=== PATIENT | male | born 1985 | race African-American/Black ===

== ENCOUNTER 2020-06-17 17:55 | Observation (INO) | payer BC, SELFPAY ==
[2020-06-17] VITALS (8 sets, daily range): BP systolic 100–141; BP diastolic 79–99; PULSE 88–109; RESP 14–20; TEMP 36.2–37; O2SAT 97–100; BMI 21.9
--- NOTE | ~2020-06-17 | US_ITS ---
EXAMINATION: US right upper quadrant DATE: 06/19/2020 10:16 INDICATION: Abnormal liver function tests. TECHNIQUE: Multiple grayscale and Doppler ultrasound images of the abdomen were obtained. COMPARISON: None FINDINGS: The visualized portions of the head and body of the pancreas are normal. The liver is casie l without focal lesion. No liver surface nodularity. There is normal flow in main portal vein. The ga llbladder is normal in size. No gallstones or gallbladder wall thickening. There was no sonographic M urphy sign. The common duct is normal and measures 3 mm. IMPRESSION: 1. Normal right upper quadrant ultrasound. Reviewed, dictated and finalized at location A.
--- NOTE | ~2020-06-17 | XR_ITS ---
EXAMINATION: XR chest 1V portable INDICATION: Transient alteration of awareness TECHNIQUE: Portable AP chest at 1926 hours COMPARISON: None available FINDINGS: The lungs are free of acute opacities. There is no pleural effusion or pneumothorax. The ca rdiomediastinal silhouette is normal. The visualized bones and soft tissues are unremarkable. IMPRESSION: 1. No acute cardiopulmonary abnormality. Reviewed, dictated and finalized at location A.
--- NOTE | ~2020-06-17 | CT_ITS ---
EXAMINATION: CT brain wo con INDICATION: Head injury, transient alteration of awareness COMPARISON: None TECHNIQUE: Standard unenhanced head CT. The dose-length product (DLP) was 605.33 mGy-cm. The mA was a djusted according to patient size. Iterative reconstruction technique was employed. FINDINGS: There is no intracranial hemorrhage, acute infarction, or abnormal mass lesion. The ventric les are normal. There is no abnormal mass effect or midline shift. The powell-white matter differentiat ion is normal. The basal cisterns are patent. The orbits are normal. There is left frontal scalp soft tissue swelling. The paranasal sinuses, mastoids and calvarium are normal. IMPRESSION: 1. No acute intracranial abnormality. Reviewed, dictated and finalized at location A.
--- NOTE | 2020-06-17 18:10 | ECG_ITS ---
Measurements Intervals [place] Rate: 85 P: 55 ID: [id number] QRS: 55 QRSD: 88 T: 55 QT: 328 QTc: 392 Interpretive Statements SINUS RHYTHM ST ELEVATION IN ANTERIOR LEADS, PROBABLY EARLY REPOLARIZATION BORDERLINE ECG Electronically Signed On 06-18-2020 7:43:43 CDT by Peter Posadas D.O.
[2020-06-17 18:24] LABS: Eosinophils Percent Auto 0.7 % (0-4.4); Hematocrit 26.3 % (37.0-47.0); Hemoglobin 7.9 g/dL (12.0-15.0); Immature Granulocyte Absolute 0.01 K/mm3 (0.00-0.031); Immature Granulocyte Percent A 0.3 % (0-0.5); Lymphocytes Absolute Auto 0.94 K/mm3 (0.9-3.2); Lymphocytes Percent Auto 31.9 % (18.3-44.2); Mean Corpuscular Hemoglobin 22.8 pg (26-34); Mean Platelet Volume 9.4 fl (7.4-10.4); Monocytes Absolute Auto 0.5 K/mm3 (0.1-0.6); Monocytes Percent Auto 15.6 % (2.6-8.5); Neutrophils Absolute Auto 1.5 K/mm3 (1.3-6.7); Neutrophils Percent Auto 50.5 % (45.5-73.1); Platelet Count Result 180 k/mm3 (150-375); Red Blood Count 3.46 M/mm3 (4.2-5.4); Red Cell Distribution Width 17.9 % (11.5-14.5)
--- NOTE | 2020-06-17 18:30 | PC.NURSE ---
Patient tells me he is unable to urinate and is refusing straight cath at this time.
[2020-06-17 18:39] LABS: Albumin Level 4.3 g/dL (3.5-5.1); Alkaline Phosphatase 57 U/L (38-126); Anion Gap 17 mmol/L (8-16); Aspartate Amino Transferase 115 U/L (14-36); Bilirubin,Total 0.7 mg/dL (0.2-1.3); Blood Urea Nitrogen 8 mg/dL (7-17); Calcium 9.2 mg/dL (8.4-10.2); Carbon Dioxide 21 mmol/L (22-30); Chloride 101 mmol/L (98-107); Estimated CRCL calculation 69 ml/min; Estimated Glomerular Filt Rate > 60; Glucose 132 mg/dL (65-105); Potassium 3.9 mmol/L (3.4-5.0); Sodium 139 mmol/L (137-145)
[2020-06-17 18:49] LABS: Alanine Aminotransferase 72 U/L (4-50)
--- NOTE | 2020-06-17 19:03 | PC.NURSE ---
Patient was asked if he was able to give a urine sample and denied saying he didn't feel the urge yet.
--- NOTE | 2020-06-17 19:11 | ED.SEIZURE ---
HPI - Seizure General Chief Complaint: Seizure Stated Complaint: seizure x2 mins Time Seen by Provider: 06/17/20 19:05 Source: RN notes reviewed History of Present Illness HPI Narrative: Patient presents emergency department via EMS for seizure. Patient had a witnessed tonic-clonic seizure by bystanders and had post ictal episode. Patient states he has a history of seizures and takes medication but missed his dose this morning. He is unsure of what seizure medication he takes at this time but does not get it filled at [facility]. He denies any other complaints at this time denies any recent illness he denies any fevers or chills chest pain shortness of breath abdominal pain Related Data Allergies Allergy/AdvReac Type Severity Reaction Status Date / Time No Known Allergies Allergy Verified 06/17/20 19:24 Review of Systems Review of Systems: Narrative: Gen.: Denies fevers or chills Eyes: Denies eye pain or visual change ENT: Denies congestion Respiratory: Denies shortness of breath or cough CV: Denies chest pain or palpitations GI: Denies abdominal pain nausea, emesis or diarrhea denies burning, urgency, frequency or hematuria Musculoskeletal: Denies back pain or muscle pain Neuro: See HPI Skin: Denies rash Except as documented, all other systems reviewed and negative [facility] Past Medical History Medical History (Updated 06/17/20 @ 21:57 by Bright Nye DO) Seizure disorder Social History Social History (Updated 06/17/20 @ 19:12 by Bright Nye DO) Smoking packs per day: 0.5 Smoking cigarettes per day: 10.0 Exam Narrative: Exam Narrative: APPEARANCE: No acute distress, nontoxic, resting in bed HEENT: Normocephalic, small area of swelling and abrasion over anterior forehead, OMM, EYES: PERRL, EOMI NECK: Supple, nontender, full range of motion without pain, no meningismus RESPIRATORY: No respiratory distress, clear to auscultation bilaterally with no rhonchi wheezing or rales CARDIOVASCULAR: RRR s murmur ABDOMINAL: Soft, nontender, nondistended MUSCULOSKELETAL: Moves all extremities. No clubbing, cyanosis or edema. NEURO: A and O ?3, following commands, speech normal, no facial droop,muscle strength 5 out of 5 bilateral upper and lower extremities SKIN:: Warm, dry. Normal Color PSYCHIATRIC: Normal affect/mood Course Course Emergency Course: Discussed with patient his seizure history. States he has not seen primary care physician or neurologist in numerous years he is unsure of the exact medication that he takes for his symptoms patient states he drinks several beers a day Discussed Dr. Mi presentation and work-up request patient start on Keppra 500 twice daily agrees with consult and follow as an inpatient Dr. Clark presentation work-up. Agrees with admission at this time. Discussed current UA will obtain urine culture hold on antibiotics as patient with episode of seizure no signs of infection Discussed with patient and family results of workup and diagnosis. Discussed need for admission. Patient and family understand and agree to current treatment plan Vital Signs Vital signs: Vital Signs Temperature 97.7 F 06/17/20 18:00 Pulse Rate 88 06/17/20 18:00 Respiratory Rate 16 06/17/20 18:00 Blood Pressure 120/94 H 06/17/20 18:00 Pulse Oximetry 100 06/17/20 18:00 Temperature 97.5 F L 06/17/20 20:34 Pulse Rate 100 06/17/20 20:34 Respiratory Rate 16 06/17/20 20:34 Blood Pressure 100/86 06/17/20 20:34 Pulse Oximetry 99 06/17/20 20:34 MDM - Seizure Lab Data Result diagrams: 06/17/20 18:15 06/17/20 18:15 Labs: Lab Results 06/17/20 06/17/20 06/17/20 Range/Units 18:14 18:14 18:15 WBC 3.0 L (4.5-10.0) K/mm3 RBC 3.46 L (4.2-5.4) M/mm3 Hgb 7.9 L (12.0-15.0) g/dL Hct 26.3 L (37.0-47.0) % MCV 76.0 L (80-100) fl MCH 22.8 L (26-34) pg MCHC 30.0 L (32-36) g/dl RDW 17.9 H (11.5-14.5) % Plt C
--- NOTE | 2020-06-17 19:25 | PC.NURSE ---
Patient told EDP that he uses [facility] pharmacy. Pharmacy called and reports only prescription they had for him was diazepam 5mg tablets 12/31/19 with 6 tablets dispensed.
[2020-06-17] MEDS: SODIUM CHLORIDE 0.9% IV 1,000 ML 999 ML IV CONT (19:45)
--- NOTE | 2020-06-17 19:50 | PC.NURSE ---
Called lab to add on Phenytion
[2020-06-17 19:58] LABS: Add Urine Microscopic? YES; Appearance Urine Clear (Clear); Bacteria Urine Trace /hpf; Bilirubin Urine Negative (Negative); Blood Urine Negative (Negative); Color Urine Yellow (Yellow); Glucose Urine UA Negative (Negative); Ketones Urine Trace mg/dL (Negative); Leukocyte Esterase Ur Trace LEU/UL (Negative); Mucus Urine Rare /lpf; Nitrate Urine Negative (Negative); Protein Urine 2+ mg/dL (Negative); RBC Urine 0-2 /hpf (0-2); Specific Grav Ur 1.019 (1.001-1.035); Squamous Epithelial Cell Urine Occasional /hpf (Few); WBC Urine 21-30 /hpf
[2020-06-17 20:23] LABS: Phenytoin Dilantin < 3 ug/mL (10-20)
--- NOTE | 2020-06-17 20:28 | PC.NURSE ---
Patient's mother present at this time. She is not able to provided information about patient's current medications.
--- NOTE | 2020-06-17 20:56 | PC.NURSE ---
called lab to add on Ethanol
[2020-06-17 21:01] LABS: Ethanol < 10 mg/dL (<10)
[2020-06-17] MEDS: levETIRAcetam 500MG/NACL 100ML 500 MG/100 ML BAG 400 MG IVPB (21:16)
--- NOTE | 2020-06-17 23:02 | PM.IMHP ---
H&P: HPI History of Present Illness Date/Time: 06/17/20 23:02 Chief complaint: seizure disorder,anemia Narrative: This is a 34 year old male with known Seizure disorder who presented to the hospital with a complaint of suffering a witnessed tonic-clonic seizure today. The patient remembers eating food at his families house before passing out and waking up in the hospital. He does complain of left frontal headache. He denies any focal neurological deficits tonight. He also denies losing urine or biting his tongue. The patient apparently had a postictal period after his seizure according to the witnesses. Currently the patient is back to his baseline. The patient was diagnosed with a seizure disorder this past December and has had a total of 4 seizures now. He also is known to drink alcohol daily. He describes drinking one tall boy daily. His last drink was yesterday. He describes sometimes going 3 days without a drink although he does admit that sometimes he gets shaky if he hasn't had a drink in some time. He denies ever having an alcohol withdrawal seizure. He currently does not have a Neurologist that he sees and states that he no longer has an medication for his seizures. Tonight he has no other complaints. He states that he has never been admitted to the hospital for of the other 3 seizures he had this year although he has been evaluated in the ER each time. ER provider has consulted Dr. Mi, Neurology who will see the patient tomorrow. The patient was loaded with IV keppra in the ER. Review of Systems Review of Systems: All systems reviewed & are unremarkable except as noted in HPI and below PMFSH Past Medical History Medical History (Updated 06/17/20 @ 23:10 by Kb Clark MD) Seizure disorder Social History Social History (Updated 06/17/20 @ 23:08 by Kb Clark MD) Smoking packs per day: 0.5 Smoking cigarettes per day: 10.0 Smoking status: Current every day smoker Tobacco type: cigarettes Alcohol intake: current Drinks per week: 7 Alcohol use details: daily drinker++ Comments Family medical history is reviewed and noncontributory. Past surgical hx is negative. Meds Home Medications and Allergies Home Medications Medication Instructions Recorded Confirmed Type Unable to Obtain Home Medications 06/17/20 06/17/20 History Allergies Allergy/AdvReac Type Severity Reaction Status Date / Time No Known Allergies Allergy Verified 06/17/20 23:14 Vital Signs Vital Signs - 24 hr 06/17/20 18:00 06/17/20 18:12 06/17/20 18:28 Temperature 36.5 C 36.7 C Pulse Rate 88 91 Respiratory Rate 16 14 Blood Pressure 120/94 H 122/79 Pulse Oximetry 100 100 99 06/17/20 19:51 06/17/20 20:34 06/17/20 21:45 Temperature 36.4 C L 36.7 C Pulse Rate 109 H 100 104 H Respiratory Rate 17 16 20 Blood Pressure 126/85 100/86 120/88 Pulse Oximetry 100 99 100 06/17/20 22:42 Temperature 36.2 C L Pulse Rate 96 Respiratory Rate 18 Blood Pressure 135/99 H Pulse Oximetry 97 Exam Const: General: cooperative, alert and awake Nutritional Appearance: well nourished Orientation/consciousness: patient oriented x3 HENMT: Head: contusion left frontal General nose exam: Normal external nose present Face and sinus: normal facial exam Mouth: Yes Normal oral and palatal mucosa present and Yes oropharynx normal Eyes: Pupils: Equal, round and reactive pupils present EOM: EOMs intact bilaterally Neck: Neck: supple and no JVD Thyroid: thyroid normal Lymphatic: lymphadenopathy not noted Resp: Effort & Inspection: normal respiratory effort Auscultation: clear to auscultation bilaterally Cardio: Rate: regular rate Rhythm: regular rhythm Heart sounds: no murmurs GI: Inspection: normal to inspection Auscultation: normal bowel sounds Skin: General skin exam: normal color and no rashes or lesions noted Neuro: General: patient oriented x3 Cranial nerves: Yes CN's
--- NOTE | 2020-06-17 23:21 | ADMGEN ---
This patient, Alli Melendez, was admitted to Medical Room 345-. Patient/family oriented to hospital policies and general routines including ID bracelet, bed and alarms, visiting hours, pain management, procedures, bathroom and other care routines, personal items, smoking policy, room service/diet, and visiting hours. Valuables list has been completed. Information on how to activate the Rapid Response Team has been discussed. Patient/Family are encouraged to report perceived risks to care and to ask questions if they do not understand what they are told or what they should do.
[2020-06-17] MEDS: SODIUM CHLORIDE 0.9% IV 1,000 ML 125 ML IV CONT (23:47)
[2020-06-18] VITALS (9 sets, daily range): BP systolic 116–139; BP diastolic 86–93; PULSE 62–95; RESP 16–18; TEMP 36.6–36.8; O2SAT 99–100
[2020-06-18 06:18] LABS: Glucose Point of Care 81 (65-105)
[2020-06-18 06:35] LABS: Basophils Percent Auto 0.6 % (0.2-1.2); Eosinophils Absolute Auto 0.1 K/mm3 (0-0.3); Eosinophils Percent Auto 2.4 % (0-4.4); Hematocrit 23.7 % (42.0-52.0); Hemoglobin 7.1 g/dL (14.0-18.0); Lymphocytes Absolute Auto 1.21 K/mm3 (0.9-3.2); Lymphocytes Percent Auto 35.7 % (18.3-44.2); Mean Corpuscular Hemoglobin 23.1 pg (26-34); Mean Corpuscular Volume 77.2 fl (80-100); Monocytes Absolute Auto 0.6 K/mm3 (0.1-0.6); Monocytes Percent Auto 16.8 % (2.6-8.5); Neutrophils Absolute Auto 1.5 K/mm3 (1.3-6.7); Neutrophils Percent Auto 44.5 % (45.5-73.1); Platelet Count Result 178 k/mm3 (150-375); Red Blood Count 3.07 M/mm3 (4.6-6.20); Red Cell Distribution Width 18.2 % (11.5-14.5); White Blood Count 3.4 K/mm3 (4.5-10.0)
[2020-06-18 06:48] LABS: Alanine Aminotransferase 62 U/L (4-50); Albumin Level 3.6 g/dL (3.5-5.1); Alkaline Phosphatase 48 U/L (38-126); Anion Gap 5 mmol/L (8-16); Aspartate Amino Transferase 89 U/L (17-59); Bilirubin,Total 0.5 mg/dL (0.2-1.3); Blood Urea Nitrogen 7 mg/dL (9-20); Calcium 8.4 mg/dL (8.4-10.2); Carbon Dioxide 26 mmol/L (22-30); Chloride 107 mmol/L (98-107); Estimated CRCL calculation 92 ml/min; Estimated Glomerular Filt Rate > 60; Glucose 84 mg/dL (75-110); Magnesium 1.5 mg/dL (1.6-2.3); Potassium 3.7 mmol/L (3.4-5.0); Sodium 138 mmol/L (137-145)
[2020-06-18 08:00] LABS: Iron 27 ug/dL (49-181)
[2020-06-18 08:01] LABS: Transferrin 253 mg/dL (206-381)
[2020-06-18 08:09] LABS: Percent Iron Saturation 7 % (20-50)
[2020-06-18 08:37] LABS: Ferritin 6.59 ng/mL (17.9-464)
[2020-06-18] MEDS: SODIUM CHLORIDE 0.9% IV 1,000 ML 125 ML IV CONT ×2 (08:39→18:12)
[2020-06-18] MEDS: MAGNESIUM SULF 2 GM/WATER 50ML 2 GM/50 ML BAG IVPB (08:39)
[2020-06-18] MEDS: FERROUS SULFATE 324 MG TABLET PO (08:40)
[2020-06-18] MEDS: THIAMINE HCL 200 MG/2 ML VIAL 100 MG IV PUSH (08:40)
[2020-06-18] MEDS: levETIRAcetam 500 MG TABLET PO ×2 (08:40→20:22)
[2020-06-18 09:00] LABS: Folic Acid 7.4 ng/mL (2.76->20)
[2020-06-18] MEDS: FOLIC ACID 1 MG TABLET PO (09:19)
--- NOTE | 2020-06-18 11:46 | WPDNEURCNPN ---
Assessment and Plan Assessment and plan (1) Alcohol abuse: Code(s): F10.10 - Alcohol abuse, uncomplicated Status: Chronic (2) Seizure disorder: Code(s): G40.909 - Epilepsy, unspecified, not intractable, without status epilepticus Status: Acute (3) Abnormal urinalysis: Code(s): R82.90 - Unspecified abnormal findings in urine Status: Acute (4) Anemia: Qualifiers: Anemia type: unspecified type Qualified Code(s): D64.9 - Anemia, unspecified Code(s): D64.9 - Anemia, unspecified Status: Acute Additional Plan considering the history of alcohol-related seizure even if it could be very well withdrawal seizure I will continue the anticonvulsant because of the chronic recurrent trauma from alcohol intoxication repeat EEG will be obtained and CT scan of the head has obviously revealed no evidence of epidural subdural or gross neurological injuries Consult date: 06/18/20 Time Seen: 10:30 HPI: Alli Melendez is a 34 year old male admitted to the hospital with a complaint of witnessed tonic-clonic seizure. patient reported eating food at his family house before passing out and waking up in the hospital in addition he complained of left frontal headaches, gave no history of incontinence of bowel or bladder, by the time he was seen by the hospitalist he was back to his baseline patient is known to have seizure disorder also known to have alcohol abuse drinking 1 tall boys daily though his last drink was day before admission ,he reported some time he becomes shaky if he has not had a drink for several days and has had alcohol withdrawal seizure. he is a current every day smoker, drinks 7 drinksper week Review of Systems Review of Systems: All systems reviewed & are unremarkable except as noted in HPI and below [facility] Social History Social History (Updated 06/17/20 @ 23:08 by Kb Clark MD) Smoking packs per day: 0.5 Smoking cigarettes per day: 10.0 Smoking status: Current every day smoker Tobacco type: cigarettes Second hand tobacco smoke exposure: No Alcohol intake: current Drinks per week: 7 Alcohol use details: daily drinker++ Substance use: former Other substance usage details: NOT WILLING TO DISCLOSE Gender identity (if verbalized by the patient): Male Spiritual care concerns: No Meds Home Medications and Allergies Home Medications Medication Instructions Recorded Confirmed Type ferrous sulfate [iron] 325 mg PO DAILY 06/17/20 06/17/20 History Allergies Allergy/AdvReac Type Severity Reaction Status Date / Time No Known Allergies Allergy Verified 06/17/20 23:14 Vital Signs Vital Signs - 24 hr 06/17/20 18:00 06/17/20 18:12 06/17/20 18:28 Temperature 36.5 C 36.7 C Pulse Rate 88 91 Pulse Rate [Right Radial Palpation] Respiratory Rate 16 14 Blood Pressure 120/94 H 122/79 Pulse Oximetry 100 100 99 06/17/20 19:51 06/17/20 20:34 06/17/20 21:45 Temperature 36.4 C L 36.7 C Pulse Rate 109 H 100 104 H Pulse Rate [Right Radial Palpation] Respiratory Rate 17 16 20 Blood Pressure 126/85 100/86 120/88 Pulse Oximetry 100 99 100 06/17/20 22:42 06/17/20 23:26 06/18/20 00:00 Temperature 36.2 C L 37.0 C Pulse Rate 96 96 95 Pulse Rate [Right Radial Palpation] 95 Respiratory Rate 18 18 Blood Pressure 135/99 H 141/97 H Pulse Oximetry 97 100 06/18/20 04:00 06/18/20 06:00 06/18/20 07:50 Temperature 36.7 C Pulse Rate 68 78 68 Pulse Rate [Right Radial Palpation] 68 Respiratory Rate 16 Blood Pressure 139/93 H Pulse Oximetry 100 Exam Narrative: Exam Narrative: examination reveals him to be awake alert cooperative in no obvious acute distress head normocephalic with no cranial bruit ear nose throat examination normal. Neck is supple with full range of motion no meningeal signs and no thyromegaly or lymphadenopathy. Eyes normal pupils reacting to light equally bilaterally heart regular wi
--- NOTE | 2020-06-18 12:54 | PC.NURSE ---
call to Meera FRANKS pt had already eaten lunch prior to Q6HR blood sugar check, changed to RENATA
--- NOTE | 2020-06-18 15:08 | PM.IMPN ---
Progress Note: A&P Assessment and Plan (1) Seizure disorder: Code(s): G40.909 - Epilepsy, unspecified, not intractable, without status epilepticus Status: Acute Assessment and Plan: He reports that this is his 4th tonic-clonic seizure. He does drink alcohol which may be a precipitating factor. He denies other substance use to me. CT brain was unremarkable. Neurology has been consulted. Continue seizure precautions. Continue Keppra per neurology. Management per neurology. Neurology has recommended EEG. (2) Anemia: Qualifiers: Anemia type: unspecified type Qualified Code(s): D64.9 - Anemia, unspecified Code(s): D64.9 - Anemia, unspecified Status: Acute Assessment and Plan: Hb 7.9 and Hct 26.3. Unknown if acute vs. chronic. Acute vs. Chronic?? The patient has no signs or symptoms of blood loss. Iron studies are consistent with iron deficiency anemia. Will give IV venofer. He reports blood (sometimes dark, tarry black and sometimes bright red blood - he also has hemorrhoids) in the stool 1 out of every 3 bowel movements. His most recent colonoscopy was last year at [facility] and he is unsure of the findings. He has not had any follow-up with GI there. Order guaiac stool testing. Monitor H/H, transfuse PRN to maintain Hb >7. Repeat hemoglobin and hematocrit. Will consult GI as well. (3) Abnormal urinalysis: Code(s): R82.90 - Unspecified abnormal findings in urine Status: Acute Assessment and Plan: UA suspicious for UTI although the patient is completely asymptomatic. Hold on starting antibiotics for now. Await urine culture. (4) Alcohol abuse: Code(s): F10.10 - Alcohol abuse, uncomplicated Status: Chronic Assessment and Plan: Continue CIWA protocol. Continue thiamine and folic acid daily. Continue ativan PRN alcohol withdrawal. He is on keppra per neurology recommendations for hx of seizure disorder but was not taking this prior to admission. Subjective Date/time seen: 06/18/20 15:08 Mr. Melendez is a 34 y.o. male with PMH significant for seizure disorder who is seen in follow-up for a witnessed tonic-clonic seizure 06/17. He reports mild discomfort at the left frontal area where he hit his head with small superficial subcutaneous hematoma but notes that it is only tender to touch. He denies headaches, chest pain, dyspnea, and cough. He denies nausea, vomiting, and abdominal pain. He feels generally well today with no other specific complaints. He denies hallucinations and anxiety. His bowels are regular and he is tolerating his diet well. Review of Systems Review of Systems: All systems reviewed & are unremarkable except as noted in HPI and below Exam Narrative: Exam Narrative: General: Pleasant, well-developed, and well-nourished 34 y.o. male lying supine in bed in no acute distress. HEENT: Small superficial 2.2cm hematoma with small abrasion and no surrounding cellulitis. Very mild tenderness. Sclerae anicteric. Conjunctivae without exudate or injection. PERRL. EOMI. Tongue with bruising on the right lateral aspect. Oral mucosa dry. Neck: Supple without lymphadenopathy or masses. Cardiac: Regular rate and rhythm. S1 and S2 normal. Lungs: Effort normal. Lungs are clear to auscultation bilaterally. Abdomen: Bowel sounds are normoactive. Abdomen is soft, non-distended, and non-tender. Extremities: Lower extremities without edema or tenderness. Neurological: Alert. CN II-XII intact. Upper and lower extremity strength intact and symmetric. Very minimal tremor with arms extended. Speech is clear. Skin: Warm and dry. Psychiatric: Judgment and insight intact. Pleasant mood and appropriate affect. Objective Data Vital Signs Vital Signs: Vital Signs - 24 hr 06/17/20 18:00 06/17/20 18:12 06/17/20 18:28 Temperature 97.7 F 98.1 F Pulse Rate 88 91 Pulse Rate [Right Radial Palpation] Respiratory Rate 16 14 Blood Press
[2020-06-18 17:08] LABS: Hematocrit 25.3 % (42.0-52.0); Hemoglobin 7.4 g/dL (14.0-18.0)
[2020-06-18 17:18] LABS: Glucose Point of Care 92 (65-105)
[2020-06-18 21:45] LABS: Glucose Point of Care 103 (65-105)
[2020-06-19] VITALS (10 sets, daily range): BP systolic 116–144; BP diastolic 75–87; PULSE 64–110; RESP 16–18; TEMP 36.6–36.9; O2SAT 100
[2020-06-19] MEDS: SODIUM CHLORIDE 0.9% IV 1,000 ML 125 ML IV CONT ×2 (05:12→15:07)
[2020-06-19 06:01] LABS: Basophils Percent Auto 0.5 % (0.2-1.2); Eosinophils Absolute Auto 0.1 K/mm3 (0-0.3); Eosinophils Percent Auto 1.8 % (0-4.4); Hematocrit 25.1 % (42.0-52.0); Hemoglobin 7.5 g/dL (14.0-18.0); Immature Granulocyte Absolute 0.01 K/mm3 (0.00-0.031); Immature Granulocyte Percent A 0.3 % (0-0.5); Lymphocytes Absolute Auto 1.09 K/mm3 (0.9-3.2); Lymphocytes Percent Auto 27.3 % (18.3-44.2); Mean Corpuscular HGB Conc 29.9 g/dl (32-36); Mean Corpuscular Hemoglobin 23.1 pg (26-34); Mean Corpuscular Volume 77.5 fl (80-100); Monocytes Absolute Auto 0.5 K/mm3 (0.1-0.6); Monocytes Percent Auto 11.8 % (2.6-8.5); Neutrophils Absolute Auto 2.3 K/mm3 (1.3-6.7); Neutrophils Percent Auto 58.3 % (45.5-73.1); Platelet Count Result 184 k/mm3 (150-375); Red Blood Count 3.24 M/mm3 (4.6-6.20); Red Cell Distribution Width 17.9 % (11.5-14.5)
[2020-06-19 06:21] LABS: Alanine Aminotransferase 55 U/L (4-50); Albumin Level 3.5 g/dL (3.5-5.1); Alkaline Phosphatase 50 U/L (38-126); Anion Gap 3 mmol/L (8-16); Aspartate Amino Transferase 66 U/L (17-59); Bilirubin,Total 0.2 mg/dL (0.2-1.3); Blood Urea Nitrogen 4 mg/dL (9-20); Calcium 8.2 mg/dL (8.4-10.2); Carbon Dioxide 24 mmol/L (22-30); Chloride 106 mmol/L (98-107); Estimated CRCL calculation 103 ml/min; Estimated Glomerular Filt Rate > 60; Glucose 90 mg/dL (75-110); Sodium 133 mmol/L (137-145)
[2020-06-19 06:33] LABS: Hypochromasia 2+ (NORMAL); Platelet Estimate Adequate (Adequate)
[2020-06-19 06:55] LABS: Hepatitis B Surface Antigen Negative (Negative)
[2020-06-19 07:01] LABS: HAV RESULT Negative (Negative); Hepatitis B Core IgM Result Negative (Negative)
[2020-06-19 07:12] LABS: Hepatitis C Virus Antibody Negative (Negative)
[2020-06-19 07:12] LABS: Potassium 3.5 mmol/L (3.4-5.0)
[2020-06-19 08:00] LABS: Glucose Point of Care 93 (65-105)
[2020-06-19] MEDS: levETIRAcetam 500 MG TABLET PO ×2 (10:47→20:58)
[2020-06-19] MEDS: FERROUS SULFATE 324 MG TABLET PO (11:21)
[2020-06-19] MEDS: FOLIC ACID 1 MG TABLET PO (11:21)
[2020-06-19] MEDS: THIAMINE HCL 200 MG/2 ML VIAL 100 MG IV PUSH (11:21)
[2020-06-19 11:35] LABS: Glucose Point of Care 83 (65-105)
[2020-06-19 13:14] LABS: Magnesium 1.8 mg/dL (1.6-2.3)
--- NOTE | 2020-06-19 14:41 | WPDGICN ---
Assessment and Plan Assessment and plan (1) Microcytic anemia: Code(s): D50.9 - Iron deficiency anemia, unspecified Status: Acute Assessment and Plan: he does not know etiology of anemia, denies obvious overt gib but never had EGD will get record of last colonoscopy will proceed with egd tomorrow, assess if ulcers, etc (2) Alcohol abuse: Code(s): F10.10 - Alcohol abuse, uncomplicated Status: Chronic Assessment and Plan: he will need to quit already had withdrawal symptoms and probably contributing to seizures ciwa protocol thiamine, mvi, etc (3) Elevated liver enzymes: Code(s): R74.8 - Abnormal levels of other serum enzymes Status: Acute Assessment and Plan: probably from alcohol abuse abd ultrasound normal hepatitis panel negative (4) Seizure disorder: Code(s): G40.909 - Epilepsy, unspecified, not intractable, without status epilepticus Status: Acute Assessment and Plan: neurology on board GI Consult Note Consult date/time: 06/19/20 14:41 Reason for consult: anemia, elevated liver enzymes HPI: Alli Melendez is a 34 year old male with history of seizure x4 times now probably related to alcohol, normally drinking 1 tall boys daily, some time will get anxious and shaky if has not had a drink for several days. He was brought to hospital after witnessed tonic-clonic seizure, normally does not take anti-seizure medication or seeing a neurologist. He also denies losing urine or biting his tongue. The patient apparently had a postictal period after his seizure according to the witnesses. Also history of anemia on iron pills, had a colonoscopy in [facility] last year because hemorrhoids, never had EGD. Denies melena. Hb 7.5, low mcv and iron. He is at baseline, no more seizures. Review of Systems Constitutional: Constitutional: Denies headache(s) and Denies weakness Eyes: Eyes: Denies blurry vision ENT: Reports Normal hearing present, Denies headache(s) and Denies neck pain Cardiovascular: Cardiovascular: Denies chest pain and Denies dyspnea Respiratory: Respiratory: Denies dyspnea Gastrointestinal: Gastrointestinal: Reports no additional gastrointestinal complaints, Denies bloating and Denies nausea Genitourinary: Genitourinary: Denies dysuria Musculoskeletal: Musculoskeletal: Denies neck pain Integumentary/Breasts: Skin/Breast: Denies dry skin Neurologic: Reports Normal hearing present and Reports seizure-like activity Endocrine: Endocrine: Denies change in body appearance Hematologic/Lymphatic: Hematologic/Lymphatic: Denies easy bleeding Allergic/Immunologic: Allergic/Immunologic: Denies urticaria PMFSH Social History Social History (Updated 06/17/20 @ 23:08 by Kb Clark MD) Smoking packs per day: 0.5 Smoking cigarettes per day: 10.0 Smoking status: Current every day smoker Tobacco type: cigarettes Second hand tobacco smoke exposure: No Alcohol intake: current Drinks per week: 7 Alcohol use details: daily drinker++ Substance use: former Other substance usage details: NOT WILLING TO DISCLOSE Gender identity (if verbalized by the patient): Male Spiritual care concerns: No Meds Home Medications and Allergies Home Medications Medication Instructions Recorded Confirmed Type ferrous sulfate [iron] 325 mg PO DAILY 06/17/20 06/17/20 History Allergies Allergy/AdvReac Type Severity Reaction Status Date / Time No Known Allergies Allergy Verified 06/17/20 23:14 Vital Signs Vital Signs - 24 hr 06/18/20 16:00 06/18/20 20:00 06/18/20 20:18 Temperature 98.3 F Pulse Rate 62 77 93 Pulse Rate [Right Radial Palpation] 68 Respiratory Rate 16 Blood Pressure 116/86 116/86 Pulse Oximetry 99 06/19/20 00:00 06/19/20 04:00 06/19/20 05:10 Temperature 98.2 F Pulse Rate 64 89 79 Pulse Rate [Right Radial Palpation] 68 68 Respiratory Rate 16 Blood Pressure 116/86 116/86 144/82
--- NOTE | 2020-06-19 15:59 | PM.IMPN ---
Progress Note: A&P Assessment and Plan (1) Seizure disorder: Code(s): G40.909 - Epilepsy, unspecified, not intractable, without status epilepticus Status: Acute Assessment and Plan: He reports that this is his 4th tonic-clonic seizure. He does drink alcohol which may be a precipitating factor. He was previously on phenytoin at some point per his mother. He was also on valium which he thniks was for tremors but stopped taking that 1 month ago. He denies other substance use to me. CT brain was unremarkable. Neurology is following. Management per neurology. He remains on PO keppra per neurology. Continue seizure precautions. EEG performed today and pending. (2) Anemia: Qualifiers: Anemia type: unspecified type Qualified Code(s): D64.9 - Anemia, unspecified Code(s): D64.9 - Anemia, unspecified Status: Acute Assessment and Plan: Hb 7.9 and Hct 26.3 at presentation. Unknown if acute vs. chronic. Acute vs. Chronic?? The patient has no signs or symptoms of blood loss. Iron studies are consistent with iron deficiency anemia. He was supposed to be on ferrous sulfate but stopped taking this 1 month ago. Continue IV venofer. Today dose 2/3. He reports blood (sometimes dark, tarry black and sometimes bright red blood - he also has hemorrhoids) in the stool 1 out of every 3 bowel movements. His most recent colonoscopy was last year at [facility] and he is unsure of the findings. He has not had any follow-up with GI there. Guaiac stool testing ordered and pending. GI was consulted and he will undergo EGD tomorrow. Monitor H/H, transfuse PRN to maintain Hb >7. (3) Abnormal urinalysis: Code(s): R82.90 - Unspecified abnormal findings in urine Status: Ruled-out Assessment and Plan: UA suspicious for UTI although the patient is completely asymptomatic. No antibiotics were started and urine culture with mixed kadi suggesting contamination. (4) Alcohol abuse: Code(s): F10.10 - Alcohol abuse, uncomplicated Status: Chronic Assessment and Plan: Continue CIWA protocol. Continue thiamine and folic acid daily. Continue ativan PRN alcohol withdrawal. He is on keppra per neurology recommendations for hx of seizure disorder but was not taking this prior to admission. Subjective Date/time seen: 06/19/20 15:59 Mr. Melendez is a 34 y.o. male with PMH significant for seizure disorder who is seen in follow-up for a witnessed tonic-clonic seizure 06/17. He also has evidence of iron deficiency anemia. The patient feels well today. His mother is at the bedside and notes that he used to be on phenytoin in the past for seizure disorder. He also took valium but stopped taking all of his medications 1 month ago. He is motivated to try to quit drinking. He is tolerating his diet well. He slept well overnight. He denies headaches, lightheadedness, and dizziness. He has not had any further seizure activity. He denies leg swelling and calf pain. He was seen by GI due to TANISHA and will undergo EGD tomorrow. Review of Systems Review of Systems: All systems reviewed & are unremarkable except as noted in HPI and below Exam Narrative: Exam Narrative: General: Pleasant, well-developed, and well-nourished 34 y.o. male upright in bed in no acute distress. HEENT: Small abrasion to the right forehead with no surrounding cellulitis, surrounding superficial hematoma resolving. Bruising to the right lateral aspect of tongue. Oral mucosa moist. Neck: Supple. Cardiac: Regular rate and rhythm. S1 and S2 normal. Lungs: Lungs are clear to auscultation bilaterally. Abdomen: Bowel sounds normoactive. Abdomen is soft, non-distended, and non-tender. Extremities: Lower extremities without edema or tenderness. Pedal pulses 2+ Neurological: Alert. Exam non-focal to casual conversation. No tremors. Speech clear. Skin: Warm and dry. Psychiatric: Judgment and insight intact. Pleasant mood and appropriate af
[2020-06-19 16:16] LABS: Glucose Point of Care 133 (65-105)
[2020-06-19] MEDS: MAGNESIUM OXIDE 200 MG TABLET PO (20:58)
[2020-06-19 21:00] LABS: Glucose Point of Care 149 (65-105)
[2020-06-20] VITALS (10 sets, daily range): BP systolic 101–141; BP diastolic 57–90; PULSE 64–96; RESP 13–20; TEMP 36.4–37.3; O2SAT 98–100
[2020-06-20 06:38] LABS: Hemoglobin 8.1 g/dL (14.0-18.0)
[2020-06-20 06:56] LABS: Alanine Aminotransferase 48 U/L (4-50); Albumin Level 3.5 g/dL (3.5-5.1); Alkaline Phosphatase 65 U/L (38-126); Anion Gap 7 mmol/L (8-16); Aspartate Amino Transferase 48 U/L (17-59); Bilirubin,Total 0.1 mg/dL (0.2-1.3); Blood Urea Nitrogen 5 mg/dL (9-20); Calcium 8.6 mg/dL (8.4-10.2); Carbon Dioxide 27 mmol/L (22-30); Chloride 107 mmol/L (98-107); Estimated CRCL calculation 92 ml/min; Estimated Glomerular Filt Rate > 60; Glucose 97 mg/dL (75-110); Magnesium 1.8 mg/dL (1.6-2.3); Potassium 3.4 mmol/L (3.4-5.0); Sodium 141 mmol/L (137-145)
[2020-06-20 08:03] LABS: Glucose Point of Care 95 (65-105)
[2020-06-20] MEDS: LACTATED RINGERS 1,000 ML 150 ML IV CONT (09:26)
--- NOTE | 2020-06-20 09:34 | WPDANESEPPF ---
Anes - Initial Pre Proc Eval Procedure: Operation Date: 06/20/20 15:45 Proposed Procedures p Esophagogastroduodenoscopy - Jake Camargo MD Date/Time: 06/20/20 09:34 Surgeon: Francy Dejesus PA-C Pre Op Diagnosis: seizure disorder,anemia Patient Data Age: 34 Gender: M Height: 5 ft 7 in Weight: 63.6 kg Last Vital Signs Temp 99.1 F 06/20/20 09:19 Pulse 84 06/20/20 09:19 Resp 20 06/20/20 09:19 BP 119/90 06/20/20 09:19 Pulse Ox 99 06/20/20 09:19 Allergies Allergy/AdvReac Type Severity Reaction Status Date / Time No Known Allergies Allergy Verified 06/20/20 09:16 Home Medications Medication Instructions Recorded Confirmed Type ferrous sulfate [iron] 325 mg PO DAILY 06/17/20 06/17/20 History Laboratory Tests 06/19/20 06/19/20 06/19/20 05:47 11:27 16:14 Hgb Hct Sodium Potassium Chloride Carbon Dioxide Anion Gap BUN Creatinine Estim Creat Clear Calc Estimated GFR Glucose POC Capillary Glucose 83 mg/dl mg/dl 133 mg/dl H mg/dl (65-105) (65-105) Calcium Magnesium 1.8 mg/dL mg/dL (1.6-2.3) Total Bilirubin AST ALT Alkaline Phosphatase Total Protein Albumin 06/19/20 06/20/20 06/20/20 20:47 05:38 05:38 Hgb 8.1 g/dL L g/dL (14.0-18.0) Hct 27.0 % L % (42.0-52.0) Sodium 141 mmol/L mmol/L (137-145) Potassium 3.4 mmol/L mmol/L (3.4-5.0) Chloride 107 mmol/L mmol/L (98-107) Carbon Dioxide 27 mmol/L mmol/L (22-30) Anion Gap 7 mmol/L L mmol/L (8-16) BUN 5 mg/dL L mg/dL (9-20) Creatinine 0.90 mg/dL mg/dL (0.7-1.3) Estim Creat Clear Calc 92 ml/min ml/min Estimated GFR > 60 (59 - ) Glucose 97 mg/dL mg/dL (75-110) POC Capillary Glucose 149 mg/dl H mg/dl (65-105) Calcium 8.6 mg/dL mg/dL (8.4-10.2) Magnesium 1.8 mg/dL mg/dL (1.6-2.3) Total Bilirubin 0.1 mg/dL L mg/dL (0.2-1.3) AST 48 U/L U/L (17-59) ALT 48 U/L U/L (4-50) Alkaline Phosphatase 65 U/L U/L (38-126) Total Protein 7.0 g/dL g/dL (6.3-8.2) Albumin 3.5 g/dL g/dL (3.5-5.1) 06/20/20 08:00 Hgb Hct Sodium Potassium Chloride Carbon Dioxide Anion Gap BUN Creatinine Estim Creat Clear Calc Estimated GFR Glucose POC Capillary Glucose 95 mg/dl mg/dl (65-105) Calcium Magnesium Total Bilirubin AST ALT Alkaline Phosphatase Total Protein Albumin Patient hx anesthesia problems: none Family hx anesthesia problems: none [facility] Past Medical History Medical History (Updated 06/19/20 @ 16:41 by Meera Ayala PA-C) Elevated liver enzymes Microcytic anemia Seizure disorder Social History Social History (Updated 06/17/20 @ 23:08 by Kb Clark MD) Smoking packs per day: 0.5 Smoking cigarettes per day: 10.0 Smoking status: Current every day smoker Tobacco type: cigarettes Second hand tobacco smoke exposure: No Alcohol intake: current Drinks per week: 7 Alcohol use details: daily drinker++ Substance use: former Other substance usage details: NOT WILLING TO DISCLOSE Gender identity (if verbalized by the patient): Male Spiritual care concerns: No Anes - Eval Final PreProcedure Day of Procedure 06/20/20 09:34 Patient weight: normal Heart: regular rate and rhythm Lungs: clear to auscultation Airway: Mallampati scale class II Neurological: alert and oriented Last oral intake: >/= 8 hours ASA classification: III Emergent: no Anesthetic plan:
[2020-06-20] MEDS: BENZOCAINE (*SP) 60 ML SPRAY CAN (HURRICAINE) 1 SPRAY MUCOUS MEM (10:08)
--- NOTE | 2020-06-20 11:04 | WPDNEUROLOGY ---
Neurology EEG Report General Information Date of Study: 06/19/20 TEST EEG DIAGNOSIS Seizure CONDITION OF RECORDING awake,drowsy and sleep EEG NUMBER [id number] CLINICAL HISTORY Patient reported that he has had seizures couple of days ago. And he is a heavy drinker EEG DESCRIPTION basic resting occipital frequency consist of low-voltage 9 to 11 hertz per 2nd alpha admixed with low-voltage beta activity. During drowsiness low-voltage beta activity seen diffusely. Bilateral sleep spindles are seen during sleep. No hyperventilation done no photic stimulation done. EEG is non paroxysmal nonfocal nonlateralizing IMPRESSION no significant abnormalities noted
[2020-06-20] MEDS: levETIRAcetam 500 MG TABLET PO (11:28)
[2020-06-20] MEDS: FOLIC ACID 1 MG TABLET PO (11:28)
[2020-06-20] MEDS: FERROUS SULFATE 324 MG TABLET PO (11:28)
[2020-06-20] MEDS: PANTOPRAZOLE SODIUM IV 40 MG VIAL IV PUSH (11:29)
[2020-06-20] MEDS: THIAMINE HCL 200 MG/2 ML VIAL 100 MG IV PUSH (11:29)
[2020-06-20] MEDS: MAGNESIUM OXIDE 200 MG TABLET PO (11:29)
--- NOTE | 2020-06-20 11:45 | PM.DS ---
DS: Admitting Diagnosis Admitting Diagnosis Admitting Diagnosis: seizure disorder,anemia DS: Discharge Diagnosis Discharge Diagnosis (1) Seizure disorder: Code(s): G40.909 - Epilepsy, unspecified, not intractable, without status epilepticus Status: Acute Assessment and Plan: He reports that this is his 4th tonic-clonic seizure. He does drink alcohol which may be a precipitating factor. He was previously on phenytoin at some point per his mother. He was also on valium which he thniks was for tremors but stopped taking that 1 month ago. He denies other substance use to me. CT brain was unremarkable. neurology evaluated the patient and his EGD showed no significant abnormalities noted. I talked to Dr. Mi who recommends continuing Keppra 500 mg q.12 hours and following up in the office for further evaluation. Informed the patient about the importance of keeping his medications refilled in taking as prescribed. I told him if he has a primary care provider they can usually prescribe his medications long-term otherwise he needs to call the neurologist for refills on his prescription for runs out. Educated patient to quit drinking alcohol which could be what is causing his seizure disorders. Patient understands and agrees with the plan all questions answered. (2) Anemia: Qualifiers: Anemia type: unspecified type Qualified Code(s): D64.9 - Anemia, unspecified Code(s): D64.9 - Anemia, unspecified Status: Acute Assessment and Plan: Hb 7.9 and Hct 26.3 at presentation. Unknown if acute vs. chronic. The patient has no signs or symptoms of blood loss. Iron studies are consistent with iron deficiency anemia. He was supposed to be on ferrous sulfate but stopped taking this 1 month ago. Continue IV venofer. Today dose 3/3. He reports blood (sometimes dark, tarry black and sometimes bright red blood - he also has hemorrhoids) in the stool 1 out of every 3 bowel movements. His most recent colonoscopy was last year at [facility] and he is unsure of the findings. He has not had any follow-up with GI there. Guaiac stool testing ordered And never collected. GI Dr. Khalil performed an EGD today which showed he has gastritis, duodenal ulcer, and hiatal hernia. He recommended continuing PPI twice a day, EGD in 6 months to assess healing, told him to refrain from NSAID use and saw drinking alcohol. He will continue A regular diet. H&H today was 8.1/27%. stable at this time. Will continue p.o. iron twice daily. Will have him check a CBC as an outpatient in 1 week. Patient understands agrees the plan to quit drinking alcohol to prevent further irritation of his stomach lining and also should. (3) Abnormal urinalysis: Code(s): R82.90 - Unspecified abnormal findings in urine Status: Ruled-out Assessment and Plan: UA suspicious for UTI although the patient is completely asymptomatic. Urine culture was negative for infection. (4) Alcohol abuse: Code(s): F10.10 - Alcohol abuse, uncomplicated Status: Chronic Assessment and Plan: CIWA has been 0 since arrival. the patient is interested in quitting drinking alcohol. He states his can be hard especially with his birthday coming up. The care coordination is giving him information and resources to help him quit drinking alcohol. DS: Summary Hospital Course Reason for hospitalization: Patient is a 34-year-old man with a history of 4 seizures in the past 1 year, currently not on any anticonvulsants, does not have a primary care to follow-up with, history of alcohol abuse, who presents to the emergency room after a witnessed seizure that was reported to be tonic colonic in nature with a postictal phase. Showed temperature of 97.7?, blood pressure 120/94, heart rate 88, respiratory rate 16, oxygen saturation 100% on room air. Initial labs showed neutropenia at 3000, macrocytic anemia with a hemoglobin of 7.9, loretta
== END 2020-06-20 17:15 | disposition home or self-care (01) ==
LOC: ANHED 21:57 → ANH3MED 22:16
PROVIDERS: Emergency Medicine; Internal Medicine Gastroenterology; Physician Assistant; Admitting Provider Family Medicine; Emergency Provider Emergency Medicine; Visit Provider Physician Assistant
PROC: 0DJ08ZZ Inspection of Upper Intestinal Tract, Via Natural or Artificial Opening Endoscopic (ICD-10-PCS; CPT 43235; principal; 2020-06-20 15:45)
DX: G40.909 Epilepsy, unspecified, not intractable, without status epilepticus (principal); F17.210 Nicotine dependence, cigarettes, uncomplicated; D64.9 Anemia, unspecified; R82.90 Unspecified abnormal findings in urine; F10.10 Alcohol abuse, uncomplicated; R79.89 Other specified abnormal findings of blood chemistry; K44.9 Diaphragmatic hernia without obstruction or gangrene; K26.9 Duodenal ulcer, unspecified as acute or chronic, without hemorrhage or perforation; K29.50 Unspecified chronic gastritis without bleeding
CPT/HCPCS: 43239; 36415; 70450; 71045; 76705; 80053; 80074; 80185; 80307; 81001; 82607; 82728; 82746; 83540; 83550; 83735; 84466; 85014; 85018; 85025; 87081; 87086; 87088; 88305; 93005; 95816; 96361; 96365; 96366; 96374; 96375; 99285; A9270; C9113; G0378; G0379; J1756; J1953; J2704; J3411; J3475; J7030; J7120

== ENCOUNTER 2022-02-13 18:34 | Observation (INO) | payer BC, SELFPAY ==
[2022-02-13] VITALS (9 sets, daily range): BP systolic 130–145; BP diastolic 61–92; PULSE 73–108; RESP 14–22; TEMP 36.9; O2SAT 20–100
--- NOTE | ~2022-02-13 | CT_ITS ---
EXAMINATION: CT brain wo con DATE: 02/13/2022 20:03 INDICATION: Seizure . TECHNIQUE: Computed tomography (CT) of the head was performed without intravenous contrast. The mA wa s adjusted according to patient size. Iterative reconstruction technique was employed. The dose-lengt h product was 605.33 mGy-cm. COMPARISON: 06/17/2020 FINDINGS: No acute intracranial hemorrhage or extra-axial fluid collection. No hydrocephalus, mass, or herniation. No acute ischemic infarct. Unremarkable dural venous sinus attenuation. No acute osseous abnormality. The aerated spaces are clear. IMPRESSION: No acute intracranial process. Reviewed, dictated and finalized at location K.
--- NOTE | 2022-02-13 19:22 | PC.NURSE ---
assuming care of pt.
--- NOTE | 2022-02-13 19:42 | ECG_ITS ---
Measurements Intervals [place] Rate: 77 P: 54 WV: 200 QRS: 48 QRSD: 88 T: 44 QT: 345 QTc: 392 Interpretive Statements SINUS RHYTHM NORMAL ECG Electronically Signed On 02-14-2022 6:33:31 CDT by Peter Posadas D.O.
--- NOTE | 2022-02-13 19:42 | ED.SEIZURE ---
HPI - Seizure General Chief Complaint: Seizure Stated Complaint: 4-5 min seizure, full body movement, hx seizures Time Seen by Provider: 02/13/22 19:20 History of Present Illness HPI Narrative: Patient is a 36-year-old male brought in by EMS after a seizure at home, 1 episode lasted for approximately 4 to 5 minutes witnessed by family member. Patient states that prior to the seizure he was sitting down watching TV, denies any fall or injuries since he was sitting down on the sofa when it happened. Patient denies any symptoms prior to the seizure. Patient states that he has a history of seizure but has not had one for at least 2 years. Patient's not on any medication for seizures. Patient states that drinking was the cause of his last seizure approximately 2 years ago. Denies headache, dizziness, speech or visual disturbance, focal weakness or numbness, chest pain, shortness of breath, abdominal pain, nausea, vomiting, diarrhea, urinary symptoms, fever or chills. Seizure History: Yes Related Data Home Medications Medication Instructions Recorded Confirmed No Home Medications 02/13/22 02/13/22 Allergies Allergy/AdvReac Type Severity Reaction Status Date / Time No Known Allergies Allergy Verified 02/13/22 18:36 Review of Systems Review of Systems: All systems reviewed & are unremarkable except as noted in HPI and below Constitutional: Constitutional: Denies body ache(s), Denies chills, Denies excessive sweating, Denies fatigue, Denies fever(s), Denies headache(s), Denies lethargy, Denies malaise, Denies weakness and Denies weight loss Eyes: Eyes: Denies blurry vision, Denies change in vision and Denies loss of vision ENT: Denies dizziness, Denies ear discharge, Denies headache(s), Denies lip swelling, Denies epistaxis, Denies nasal congestion, Denies neck pain, Denies throat swelling and Denies tongue swelling Cardiovascular: Cardiovascular: Denies chest pain, Denies chest pain at rest, Denies chest pain with activity, Denies diaphoresis, Denies rapid heart rate, Denies edema, Denies irregular heart rhythm, Denies lightheadedness, Denies palpitations, Denies dyspnea and Denies dyspnea on exertion Respiratory: Respiratory: Denies chest congestion, Denies cough, Denies hemoptysis, Denies dyspnea and Denies dyspnea on exertion Gastrointestinal: Gastrointestinal: Denies abdominal pain, Denies melena, Denies hematochezia, Denies diarrhea, Denies nausea, Denies vomiting and Denies hematemesis Musculoskeletal: Musculoskeletal: Denies abnormal gait, Denies deformity, Denies joint swelling, Denies limited range of motion, Denies neck pain and Denies numbness Neurologic: Denies Abnormal speech present, Denies abnormal gait, Denies confusion, Denies dizziness, Denies headache(s), Denies focal weakness, Denies loss of vision, Denies numbness, Denies Other visual disturbances, Denies Sensory deficit (Neuro) and Denies weakness Psychiatric: Psychiatric: Denies confusion, Denies depression, Denies auditory hallucinations, Denies homicidal ideation and Denies suicidal ideation Endocrine: Endocrine: Denies cold intolerance, Denies excessive sweating, Denies fatigue, Denies heat intolerance and Denies palpitations Hematologic/Lymphatic: Hematologic/Lymphatic: Denies easy bleeding and Denies easy bruising Allergic/Immunologic: Allergic/Immunologic: Denies lip swelling, Denies throat swelling and Denies tongue swelling PMFSH Past Medical History Medical History Elevated liver enzymes Microcytic anemia Seizure disorder Social History Social History Smoking packs per day: 0.5 Smoking cigarettes per day: 10.0 Smoking status: Current every day smoker Tobacco type: cigarettes Second hand tobacco smoke exposure: No Alcohol intake: current Drinks per week: 7 Alcohol use details: daily drinker++ Substance use: former O
[2022-02-13] MEDS: SODIUM CHLORIDE 0.9% IV 1,000 ML 999 ML IV CONT (19:50)
[2022-02-13 19:56] LABS: Basophils Percent Auto 0.6 % (0.2-1.2); Eosinophils Percent Auto 0.4 % (0-4.4); Hematocrit 24.2 % (42.0-52.0); Immature Granulocyte Absolute 0.02 K/mm3 (0.00-0.031); Immature Granulocyte Percent A 0.4 % (0-0.5); Lymphocytes Percent Auto 24.9 % (18.3-44.2); Mean Corpuscular HGB Conc 26.9 g/dl (32-36); Mean Corpuscular Hemoglobin 19.1 pg (26-34); Mean Platelet Volume 9.9 fl (7.4-10.4); Monocytes Absolute Auto 0.7 K/mm3 (0.1-0.6); Monocytes Percent Auto 13.7 % (2.6-8.5); Neutrophils Absolute Auto 2.9 K/mm3 (1.3-6.7); Nucleated Red Blood Cells Perc 0.4 % (0.0-0.2); Platelet Count Result 144 k/mm3 (150-375); Red Blood Count 3.41 M/mm3 (4.6-6.20); Red Cell Distribution Width 20.6 % (11.5-14.5); White Blood Count 4.8 K/mm3 (4.5-10.0)
[2022-02-13 20:08] LABS: Albumin Level 4.3 g/dL (3.5-5.1); Alkaline Phosphatase 64 U/L (38-126); Anion Gap 20 mmol/L (8-16); Aspartate Amino Transferase 73 U/L (17-59); Bilirubin,Total 0.8 mg/dL (0.2-1.3); Blood Urea Nitrogen 7 mg/dL (9-20); Calcium 8.7 mg/dL (8.4-10.2); Carbon Dioxide 10 mmol/L (22-30); Chloride 105 mmol/L (98-107); Estimated CRCL calculation 78 ml/min; Estimated Glomerular Filt Rate > 60; Glucose 133 mg/dL (65-110); Potassium 3.7 mmol/L (3.4-5.0); Sodium 135 mmol/L (137-145)
[2022-02-13 20:18] LABS: Alanine Aminotransferase 43 U/L (6-50); Troponin I < 0.012 ng/mL (0.000-0.034)
[2022-02-13 20:20] LABS: Hemoglobin 6.5 g/dL (14.0-18.0)
[2022-02-13 20:21] LABS: Platelet Estimate Decreased (Adequate)
[2022-02-13 20:22] LABS: Anisocytosis 3+ (NORMAL); Hypochromasia 1+ (NORMAL)
[2022-02-13] MEDS: SODIUM CHLORIDE 0.9% IV 250 ML 30 ML IV CONT (23:18)
[2022-02-13 23:55] LABS: SARS-CoV-2 RNA PCR Negative
[2022-02-14] VITALS (17 sets, daily range): BP systolic 121–148; BP diastolic 64–92; PULSE 63–83; RESP 14–18; TEMP 36.6–37.2; O2SAT 97–100; BMI 26.9
[2022-02-14] MEDS: TUBING, BLOOD SET 1 EACH XX (00:34)
[2022-02-14] MEDS: LACTATED RINGERS 1,000 ML 125 ML IV CONT (01:12)
--- NOTE | 2022-02-14 01:17 | PC.NURSE ---
This patient, Alli Melendez, was admitted to [facility] Surg Room 332-02. Patient/family oriented to hospital policies and general routines including ID bracelet, bed and alarms, visiting hours, pain management, procedures, bathroom and other care routines, personal items, smoking policy, room service/diet, and visiting hours. Information on how to activate the Rapid Response Team has been discussed. Patient/Family are encouraged to report perceived risks to care and to ask questions if they do not understand what they are told or what they should do.
--- NOTE | 2022-02-14 03:06 | PM.IMHP ---
H&P: HPI History of Present Illness Date/Time: 02/14/22 03:06 Chief Complaint: Seizure. Narrative: This is a 36-year-old male with past medical history significant for iron deficiency anemia, polysubstance abuse, patient drinks a 24 oz beer and 2 shots of whiskey daily, he smokes 5-6 cigarettes a day. Patient presents to the emergency room after he had a witnessed seizure patient has no recollection of events he was with family members when this happened. Patient has been in his usual state of health he has had a number of seizures in the last 5 years spaced out, roughly 4 to 5, patient denies any cough, sputum production, chills, fevers, rigors, no nausea, no vomiting, no diarrhea, denies any hematemesis, melena, bright red blood per rectum. Substance abuse Preliminary workup was significant for hemoglobin of 6.5 MCV of 70, Review of Systems Review of Systems: Patient has seizure episode however he has no recollection of events, no issues prior to this has been in his usual state of health. Constitutional: Constitutional: Denies chills, Denies fatigue, Denies fever(s), Denies lethargy, Denies malaise, Denies poor appetite and Denies weight loss Eyes: Eyes: Denies change in vision ENT: Denies dysphagia, Denies vertigo, Denies dizziness and Denies odynophagia Cardiovascular: Cardiovascular: Denies chest pain, Denies pedal edema, Denies irregular heart rhythm, Denies claudication, Denies leg edema, Denies lightheadedness, Denies radiating jaw, neck or arm pain, Denies palpitations, Denies dyspnea on exertion, Denies orthopnea and Denies paroxysmal nocturnal dyspnea Respiratory: Respiratory: Denies change in phlegm color, Denies cough, Denies excessive phlegm production, Denies dyspnea and Denies dyspnea on exertion Gastrointestinal: Gastrointestinal: Denies abdominal pain, Denies melena, Denies coffee ground emesis, Denies dyspepsia, Denies heartburn, Denies diarrhea, Denies nausea and Denies vomiting Genitourinary: Genitourinary: Denies dysuria Musculoskeletal: Musculoskeletal: Denies muscle weakness Integumentary/Breasts: Skin/Breast: Denies rash Neurologic: Denies focal weakness, Reports seizure-like activity, Denies Sensory deficit (Neuro) and Reports tremor(s) Psychiatric: Psychiatric: Reports other Endocrine: Endocrine: Denies cold intolerance, Denies fatigue, Denies heat intolerance, Denies polyphagia, Denies polydipsia and Denies palpitations Hematologic/Lymphatic: Hematologic/Lymphatic: Reports no additional hematologic/lymphatic complaints and Reports as per HPI Allergic/Immunologic: Allergic/Immunologic: Reports no additional allergic/immunologic complaints and Reports as per HPI [facility] Past Medical History Medical History Elevated liver enzymes Microcytic anemia Seizure disorder Social History Social History Smoking packs per day: 0.5 Smoking cigarettes per day: 10.0 Years smoked: 15 Smoking pack-years: 7.50 Smoking status: Current every day smoker Tobacco type: cigarettes Second hand tobacco smoke exposure: No Alcohol intake: current Drinks per week: 7 Alcohol use details: daily drinker++ Substance use: current Substance use type: marijuana Gender identity (if verbalized by the patient): Male Spiritual care concerns: No Meds Home Medications and Allergies Home Medications Medication Instructions Recorded Confirmed Type No Home Medications 02/13/22 02/13/22 History Allergies Allergy/AdvReac Type Severity Reaction Status Date / Time No Known Allergies Allergy Verified 02/13/22 18:36 Vital Signs Vital Signs - 24 hr 02/13/22 18:32 02/13/22 18:46 02/13/22 19:30 Temperature 98.4 F Pulse Rate 102 H 108 H 92 Respiratory Rate 22 H 20 Blood Pressure 133/77 141/92 H Pulse Oximetry 100 100 Oxygen Delivery Room Air 02/13/22 19:30 02/13/22
[2022-02-14] MEDS: THIAMINE HCL INJ 100 MG, FOLIC ACID INJ 1 MG, MULTIVITAMINS-12 INJ VIAL 1 5 ML, MULTIVI... IV CONT (05:56)
[2022-02-14] MEDS: chlordiazePOXIDE (*CRX) 25 MG CAPSULE 50 MG PO ×3 (05:56→22:38)
[2022-02-14] MEDS: SODIUM CHLORIDE 0.9% IV 250 ML 30 ML IV CONT (06:35)
[2022-02-14] MEDS: TUBING, BLOOD PLUM PUMP TUBING 1 EACH XX (06:52)
[2022-02-14] MEDS: PANTOPRAZOLE SODIUM IV 40 MG VIAL IV PUSH (08:39)
--- NOTE | 2022-02-14 10:00 | PM.IMPN ---
Progress Note: A&P Assessment and Plan (1) Generalized seizure: Code(s): R56.9 - Unspecified convulsions Status: Acute Assessment and Plan: Likely secondary to alcohol consumption withdrawal Patient has had a number of seizures in the past 5 years Consider starting anti-convulsants Neurology consult thank you for your recommendations CT head No acute intracranial process. Seizure precautions (2) DTs (delirium tremens): Code(s): F10.231 - Alcohol dependence with withdrawal delirium Status: Acute Assessment and Plan: [facility] protocol in progress Schedule Librium Ativan for further help ETOH cessation education provided Thiamine and folic acid on board Supportive care (3) Microcytic anemia: Code(s): D50.9 - Iron deficiency anemia, unspecified Status: Acute Assessment and Plan: H/H 8.6/29.9 Anemia labs ordered Will give 1 unit of packed red blood cells given today (02/14/22) Labs do indicate iron deficiency from the past labs (4) Tobacco dependence: Code(s): F17.200 - Nicotine dependence, unspecified, uncomplicated Status: Acute Assessment and Plan: Nicotine patch as needed (5) Alcohol dependence: Code(s): F10.20 - Alcohol dependence, uncomplicated Status: Acute Assessment and Plan: Referral for 12 step program in the outpatient setting Follow-up in the outpatient setting Time Spent With Patient Time with patient: 25 - 35 minutes Subjective Date/time seen: 02/14/22 10:00 Patient was sleeping when I went in the to assess him. Patient stated that he feels very tired. He denies any chest pain, shortness of breath, nausea, vomiting, diarrhea, constipation, sweats, fevers, chills. Patient also stated that he is aware that he does have anemia. He also stated that he will do whatever it takes to get better. 02/14/22? 03:06 This is a 36-year-old male with past medical history significant for iron deficiency anemia, polysubstance abuse, patient drinks a 24 oz beer and 2 shots of whiskey daily, he smokes 5-6 cigarettes a day.? Patient presents to the emergency room after he had a witnessed seizure patient has no recollection of events he was with family members when this happened.? Patient has been in his usual state of health he has had a number of seizures in the last 5 years spaced out, roughly 4 to 5, patient denies any cough, sputum production, chills, fevers, rigors, no nausea, no vomiting, no diarrhea, denies any hematemesis, melena, bright red blood per rectum.? Substance abuse Preliminary workup was significant for hemoglobin of 6.5 MCV of 70 Review of Systems Review of Systems: All systems reviewed & are unremarkable except as noted in HPI and below Exam Const: General: comfortable, no acute distress, well developed, alert and awake Nutritional Appearance: average body habitus Orientation/consciousness: patient oriented x3 Other: Chronically ill-looking HENMT: Head: normal to inspection, normocephalic and atraumatic Ears: hearing grossly normal bilaterally Face and sinus: normal facial exam Eyes: General: appearance normal, both eyes and all related structures Pupils: Equal, round and reactive pupils present EOM: EOMs intact bilaterally Neck: Neck: full ROM, no lymphadenopathy and no JVD Thyroid: thyroid normal Lymphatic: no lymphadenopathy noted Resp: Effort & Inspection: normal respiratory effort and able to speak in complete sentences Auscultation: clear to auscultation bilaterally Cardio: Jugular venous distension: no JVD Rate: regular rate Rhythm: regular rhythm Heart sounds: S1 normal heart sound present and S2 normal heart sound present : General: Yes deferred Skin: Rashes: no rashes Wounds: no wounds Neuro: General: patient oriented x3, CN's II-XI intact bilaterally and Unable to assess gait Cranial nerves: Yes CN's II-XII inta
--- NOTE | 2022-02-14 12:17 | WPDNEURCNPN ---
Assessment and Plan Assessment and plan (1) Alcohol dependence: Code(s): F10.20 - Alcohol dependence, uncomplicated Status: Acute (2) Generalized seizure: Code(s): R56.9 - Unspecified convulsions Status: Acute (3) Recurrent seizures: Code(s): G40.909 - Epilepsy, unspecified, not intractable, without status epilepticus Status: Acute Plan 1 severe anemia most likely iron deficiency 2 CT scan negative with no subdural or epidural hematoma 3 alcohol-related seizure disorder for which he has been started on anticonvulsant in the past but has been noncompliant can be restarted though it is not strongly indicated more of he needs the alcohol related counseling4 severe anemia Additional Plan EEG then according Consult date: 02/14/22 Time Seen: 11:00 HPI: Alli Melendez is a 36 year old male admitted to the hospital through the emergency room for the complaints of seizure. As per the review of the emergency room record he was brought by EMS subsequent to his seizure at home, episode lasting for at least 4 to 5 minutes and witnessed by the family personnel prior to the seizure he was sitting down watching TV he gave no history of fall or injuries patient reported that he does have a history of seizure but has not had for the last 2 years he was not taking any anticonvulsants and in the past he was told that his seizures are related to the drinking he gave no history of any other associated problems, he was not taking any medications at home he is not allergic to any medication, he does have ongoing history of his smoking packs per year 0.5 currently everyday smoker and also currently heavy alcohol intake up with 7 drinks per week though he was not willing to disclose the substance use, initial evaluation documented him to have somewhat tachycardia with blood pressure 133/77 and he was on room air good oxygenation vital signs otherwise were stable his hemoglobin was only 6.5 hematocrit 24.2 for which he was transposed [id number] and it was mentioned that he does have a history of iron deficiency anemia though he is not compliant with taking the iron pills he had undergone colonoscopy at [facility] with documentation of hemorrhoids he also had an EGD for anemia which documented gastritis and peptic ulcer and was given PPIs to treat, pertinent investigations include the CT scan of the head which documented no epidural subdural no hydrocephalus and no space-occupying lesion though as mentioned above his routine lab was compatible with severe anemia, mild hyponatremia mild hyperglycemia and AST of 73 phenytoin level was less than 3 but obviously he is noncompliant Review of Systems Review of Systems: All systems reviewed & are unremarkable except as noted in HPI and below PMFSH Past Medical History Medical History Elevated liver enzymes Microcytic anemia Seizure disorder Social History Social History Smoking packs per day: 0.5 Smoking cigarettes per day: 10.0 Years smoked: 15 Smoking pack-years: 7.50 Smoking status: Current every day smoker Tobacco type: cigarettes Second hand tobacco smoke exposure: No Alcohol intake: current Drinks per week: 7 Alcohol use details: daily drinker++ Substance use: current Substance use type: marijuana Gender identity (if verbalized by the patient): Male Spiritual care concerns: No Meds Home Medications and Allergies Home Medications Medication Instructions Recorded Confirmed Type No Home Medications 02/13/22 02/13/22 History Allergies Allergy/AdvReac Type Severity Reaction Status Date / Time No Known Allergies Allergy Verified 02/13/22 18:36 Vital Signs Vital Signs - 24 hr 02/13/22 18:32 02/13/22 18:46 02/13/22 19:30 Temperature 36.9 C Pulse Rate 102 H 108 H 92 Pulse Rate [Bilateral Radial Palpation] Respiratory R
[2022-02-14 12:38] LABS: Basophils Percent Auto 0.5 % (0.2-1.2); Eosinophils Absolute Auto 0.1 K/mm3 (0-0.3); Eosinophils Percent Auto 1.8 % (0-4.4); Hematocrit 29.9 % (42.0-52.0); Hemoglobin 8.6 g/dL (14.0-18.0); Immature Granulocyte Absolute 0.02 K/mm3 (0.00-0.031); Immature Granulocyte Percent A 0.5 % (0-0.5); Immature Platelet Fraction Pct 6.9 % (0.9-11.2); Lymphocytes Absolute Auto 0.72 K/mm3 (0.9-3.2); Lymphocytes Percent Auto 18.8 % (18.3-44.2); Mean Corpuscular HGB Conc 28.8 g/dl (32-36); Mean Corpuscular Hemoglobin 21.3 pg (26-34); Mean Platelet Volume 9.7 fl (7.4-10.4); Monocytes Absolute Auto 0.5 K/mm3 (0.1-0.6); Monocytes Percent Auto 13.5 % (2.6-8.5); Neutrophils Absolute Auto 2.5 K/mm3 (1.3-6.7); Neutrophils Percent Auto 64.9 % (45.5-73.1); Nucleated Red Blood Cells Perc 0.5 % (0.0-0.2); Platelet Count Result 156 k/mm3 (150-375); Red Blood Count 4.04 M/mm3 (4.6-6.20); Red Cell Distribution Width 22.5 % (11.5-14.5); White Blood Count 3.8 K/mm3 (4.5-10.0)
[2022-02-14 12:42] LABS: Alanine Aminotransferase 34 U/L (6-50); Albumin Level 3.7 g/dL (3.5-5.1); Alkaline Phosphatase 58 U/L (38-126); Anion Gap 4 mmol/L (8-16); Aspartate Amino Transferase 69 U/L (17-59); Bilirubin,Total 1.1 mg/dL (0.2-1.3); Blood Urea Nitrogen 5 mg/dL (9-20); Calcium 7.9 mg/dL (8.4-10.2); Carbon Dioxide 22 mmol/L (22-30); Chloride 107 mmol/L (98-107); Estimated CRCL calculation 85 ml/min; Estimated Glomerular Filt Rate > 60; Glucose 94 mg/dL (65-110); Magnesium 2.1 mg/dL (1.6-2.3); Potassium 3.2 mmol/L (3.4-5.0); Sodium 133 mmol/L (137-145)
[2022-02-14] MEDS: FOLIC ACID 1 MG TABLET PO (12:43)
[2022-02-14] MEDS: THIAMINE HCL 100 MG TABLET PO (12:43)
[2022-02-14 13:05] LABS: Anisocytosis 2+ (NORMAL); Platelet Estimate Adequate (Adequate)
[2022-02-14 13:06] LABS: Hypochromasia 2+ (NORMAL); Poikilocytosis 1+ (NORMAL); Target Cells 1+ (NORMAL)
--- NOTE | 2022-02-14 14:38 | PCCCNOTE ---
On 02/14/22, the student, [Dorothy De La Cruz], provided care and completed [facility] documentation on this patient. I have reviewed the student's documentation and agree with the findings.
[2022-02-14 16:43] LABS: Iron 17 ug/dL (49-181)
[2022-02-14 16:53] LABS: Percent Iron Saturation 4 % (20-50)
[2022-02-14 16:56] LABS: Lactate Dehydrogenase 432 U/L (313-618)
[2022-02-14 17:04] LABS: Transferrin 272 mg/dL (206-381)
[2022-02-14 17:20] LABS: Ferritin 8.58 ng/mL (17.9-464)
[2022-02-14 18:07] LABS: Folic Acid > 20.0 ng/mL (2.76->20)
[2022-02-14] MEDS: NICOTINE (*PBKC) 14 MG PATCH 1 PATCH TRANSDERM (22:34)
[2022-02-15] MEDS: chlordiazePOXIDE (*CRX) 25 MG CAPSULE 50 MG PO (05:22)
[2022-02-15 06:00] VITALS: BP 143/90; PULSE 72; RESP 16; TEMP 36.5; O2SAT 100
[2022-02-15 07:30] LABS: Basophils Percent Auto 0.6 % (0.2-1.2); Eosinophils Percent Auto 0.9 % (0-4.4); Hematocrit 32.8 % (42.0-52.0); Hemoglobin 9.8 g/dL (14.0-18.0); Immature Granulocyte Absolute 0.01 K/mm3 (0.00-0.031); Immature Granulocyte Percent A 0.2 % (0-0.5); Lymphocytes Percent Auto 21.6 % (18.3-44.2); Mean Corpuscular HGB Conc 29.9 g/dl (32-36); Mean Corpuscular Hemoglobin 21.5 pg (26-34); Mean Corpuscular Volume 72.1 fl (80-100); Mean Platelet Volume 9.6 fl (7.4-10.4); Monocytes Absolute Auto 0.4 K/mm3 (0.1-0.6); Monocytes Percent Auto 8.8 % (2.6-8.5); Neutrophils Absolute Auto 3.2 K/mm3 (1.3-6.7); Neutrophils Percent Auto 67.9 % (45.5-73.1); Platelet Count Result 173 k/mm3 (150-375); Red Blood Count 4.55 M/mm3 (4.6-6.20); Red Cell Distribution Width 22.3 % (11.5-14.5); White Blood Count 4.6 K/mm3 (4.5-10.0)
[2022-02-15 07:39] LABS: Alanine Aminotransferase 33 U/L (6-50); Albumin Level 3.6 g/dL (3.5-5.1); Alkaline Phosphatase 60 U/L (38-126); Anion Gap 3 mmol/L (8-16); Aspartate Amino Transferase 76 U/L (17-59); Bilirubin,Total 0.6 mg/dL (0.2-1.3); Blood Urea Nitrogen 4 mg/dL (9-20); Carbon Dioxide 25 mmol/L (22-30); Chloride 106 mmol/L (98-107); Estimated CRCL calculation 85 ml/min; Estimated Glomerular Filt Rate > 60; Glucose 95 mg/dL (65-110); Potassium 3.3 mmol/L (3.4-5.0); Sodium 134 mmol/L (137-145)
[2022-02-15] MEDS: FERROUS SULFATE 324 MG TABLET PO (08:46)
[2022-02-15] MEDS: SENNA/DOCUSATE SODIUM TABLET 1 TAB PO (08:46)
[2022-02-15] MEDS: PANTOPRAZOLE SODIUM IV 40 MG VIAL IV PUSH (08:46)
[2022-02-15] MEDS: THIAMINE HCL 100 MG TABLET PO (08:47)
[2022-02-15] MEDS: FOLIC ACID 1 MG TABLET PO (08:47)
--- NOTE | 2022-02-15 09:08 | WPDNEUROLOGY ---
Neurology EEG Report General Information Date of Study: 02/14/22 TEST eeg DIAGNOSIS Seizures CONDITION OF RECORDING awake drowsy and sleep EEG NUMBER [id number] CLINICAL HISTORY patient reported he has had 5 seizures within the last 5 years all alcohol related. EEG DESCRIPTION whole record consists of low-voltage 15 to 18 hertz per 2nd beta activity admixed with minimal amount of poorly organized low voltage 9 to 11 hertz per 2nd alpha posteriorly. Hyperventilation not done photic stimulation not done. Non paroxysmal nonfocal nonlateralizing. IMPRESSION Normal recall
--- NOTE | 2022-02-15 09:48 | WPDNEUROPN ---
Progress Note: A&P Assessment and Plan (1) Recurrent seizures: Code(s): G40.909 - Epilepsy, unspecified, not intractable, without status epilepticus Status: Acute Plan admitted to the hospital for the complaints of recurrent seizure in addition to the history of noncompliance with the medication and as well as continual drinking explain to him today the repeat EEG is normal the seizures will continue to recur as long as he is involved in the alcohol drinking but the anticonvulsants can be continued because of the additional safety factor though again he was advised that as long as his drinking anticonvulsants are not going to work Additional Plan patient can be discharged on the present therapeutic regimen and follow with a physician Time Spent With Patient Time with patient: less than 15 minutes Subjective Date/time seen: 02/15/22 09:48 Objective Data Vital Signs Vital Signs: Vital Signs - 24 hr 02/14/22 09:58 02/14/22 10:40 02/14/22 11:55 Temperature 37.1 C 36.7 C Pulse Rate 68 72 Pulse Rate [Bilateral Radial Palpation] 68 Respiratory Rate 16 14 Blood Pressure 134/88 138/86 Pulse Oximetry 100 100 Oxygen Delivery 02/14/22 14:38 02/14/22 14:00 02/14/22 21:03 Temperature 37.2 C Pulse Rate 68 Pulse Rate [Bilateral Radial Palpation] Respiratory Rate 16 Blood Pressure 129/90 Pulse Oximetry 99 100 97 Oxygen Delivery Room Air Room Air 02/14/22 22:00 02/14/22 20:00 02/15/22 06:00 Temperature 37.1 C 36.5 C Pulse Rate 83 72 Pulse Rate [Bilateral Radial Palpation] Respiratory Rate 16 16 Blood Pressure 128/88 143/90 H Pulse Oximetry 100 100 Oxygen Delivery Room Air 02/15/22 08:20 Temperature Pulse Rate Pulse Rate [Bilateral Radial Palpation] Respiratory Rate Blood Pressure Pulse Oximetry Oxygen Delivery Room Air Intake/Output Intake/Output: Intake & Output 02/12/22 02/13/22 02/14/22 02/15/22 23:59 23:59 23:59 23:59 Intake Total 1000 3210 620 Output Total 450 300 Balance 1000 2760 320 Meds/Results Medications: Active Medications Generic Name Dose Route Start Last Admin Trade Name Freq PRN Reason Stop Dose Admin Chlordiazepoxide HCl 50 mg 02/14/22 18:05 02/15/22 05:22 Chlordiazepoxide (*Crx) 25 Mg Capsule PO 50 mg Q6HR PRN Administration Alcohol Withdrawal Ferrous Sulfate 324 mg 02/15/22 08:00 02/15/22 08:46 Ferrous Sulfate 324 Mg Tablet PO 324 mg BIDWM MARYCHUY Administration Folic Acid 1 mg 02/14/22 10:00 02/15/22 08:47 Folic Acid 1 Mg Tablet PO 1 mg DAILY MARYCHUY Administration Lorazepam 1 mg 02/14/22 04:59 Lorazepam Inj (*Crx) 2 Mg/Ml Vial IV PUSH Q6H PRN Anxiety/Restlessness/Tremors Nicotine 1 patch 02/14/22 22:00 02/14/22 22:34 Nicotine (*Pbkc) 14 Mg Patch TRANSDERM 1 patch QAM MARYCHUY Administration Pantoprazole Sodium 40 mg 02/14/22 09:00 02/15/22 08:46 Pantoprazole Sodium Iv 40 Mg Vial IV PUSH 40 mg QAM MARYCHUY Administration Senna/Docusate Sodium 1 tab 02/15/22 09:00 02/15/22 08:46 Senna/Docusate Sodium Tablet PO 1 tab DAILY MARYCHUY Administration Thiamine HCl 100 mg 02/14/22 10:00 02/15/22 08:47 Thiamine Hcl 100 Mg Tablet PO 100 mg QAM MARYCHUY Administration Radiology Results: ITS Impressions Head CT 02/13/22 20:07 IMPRESSION: No acute intracranial process. Labs Labs: Laboratory Results - last 24 hr 02/13/22 02/14/22 02/14/22 21:30 12:26 12:26 WBC 3.8 L RBC 4.04 L Hgb 8.6 L Hct 29.9 L MCV 74.0 L MCH 21.3 L D MCHC 28.8 L RDW 22.5 H Plt Count 156 MPV 9.7 Immature Gran % (Auto) 0.5 Neut % (Auto) 64.9 Lymph % (Auto) 18.8 [place] % (Auto) 13.5 H Eos % (Auto) 1.8 Baso % (Auto) 0.5 Lymph # (Auto) 0.72 L [place] # (Auto) 0.5 Eos # (Auto) 0.1 Baso # (Auto) 0.0 Abs Immat Gran (auto) 0.02 Absolute Neuts (auto) 2.5 Absolute Nucleated RBC 0.0
[2022-02-15 10:10] LABS: Anisocytosis 1+ (NORMAL); Hypochromasia 1+ (NORMAL); Platelet Estimate Adequate (Adequate); Target Cells 1+ (NORMAL)
--- NOTE | 2022-02-15 11:30 | PM.DS ---
DS: Admitting Diagnosis Discharge Date 02/15/22 1130 Admitting Diagnosis Iron Deficiency anemia, Seizures DS: Discharge Diagnosis Discharge Diagnosis (1) Generalized seizure: Code(s): R56.9 - Unspecified convulsions Status: Acute Assessment and Plan: Likely secondary to alcohol consumption withdrawal Patient has had a number of seizures in the past 5 years Keppra 500mg PO BID Neurology consult thank you for your recommendations CT head No acute intracranial process. Seizure precautions EEG shows normal recall (2) DTs (delirium tremens): Code(s): F10.231 - Alcohol dependence with withdrawal delirium Status: Acute Assessment and Plan: [facility] protocol in progress Schedule Librium, will send him home on PRN Ativan for further help ETOH cessation education provided Thiamine and folic acid on board Supportive care (3) Microcytic anemia: Code(s): D50.9 - Iron deficiency anemia, unspecified Status: Acute Assessment and Plan: H/H 9.8/32.8 Anemia labs Iron 17, TIBC 402, % saturation 4, transferrin 272, ferritin 8.58, folate greater than 20, B12 496 Will give 1 unit of packed red blood cells given today (02/14/22) Labs do indicate iron deficiency from the past labs Started patient on 325mg PO iron BID (4) Tobacco dependence: Code(s): F17.200 - Nicotine dependence, unspecified, uncomplicated Status: Acute Assessment and Plan: Nicotine patch as needed (5) Alcohol dependence: Code(s): F10.20 - Alcohol dependence, uncomplicated Status: Acute Assessment and Plan: Referral for 12 step program in the outpatient setting Follow-up in the outpatient setting Talked extensively with patient about AA DS: Summary Hospital Course Hospital Course: Patient is a 36-year-old male with past medical history of iron deficiency anemia, prior substance abuse, alcohol abuse who presented to the emergency room after an unwitnessed seizure with loss of consciousness. Patient stated that he has been in his usual state of health however he was binge drinking due to the fact that he lost his job quit drinking for 3 days and started to have tremors. It was also noted that patient had a H&H of 6.5/24.2. Patient was given 1 unit of packed red blood cells and anemia labs were obtained. Patient did have notable low iron and ferrous sulfate was initiated. Patient has no complaints today and is feeling a lot better today. EEG was performed neurology was consulted. EEG found no abnormalities. Patient was started on Keppra. Labs remained stable today. Current H&H is 9.8/32.8. Patient denies any chest pain, shortness a breath, nausea, vomiting, diarrhea, constipation, weakness or fatigue. Follow-up appointment for any PCP has been provided for the patient. Patient was also advised educated about the importance of alcohol cessation and need to follow-up within appropriate treatment plan. Patient verbalized understanding. Status at Discharge Functional status at discharge: independent ambulation Overall status at discharge: patient is progressing back to baseline Time Spent with Patient Time attestation: Total time spent providing and/or coordinating discharge services: 42 minutes Specific discharge activities: Diagnostic testing, chart review, developing a treatment plan, education, care coordination documentation, physical exam, result review Exam Const: General: comfortable, no acute distress, well developed, alert and awake Nutritional Appearance: average body habitus Orientation/consciousness: patient oriented x3 HENMT: Head: normal to inspection, normocephalic and atraumatic Ears: hearing grossly normal bilaterally Face and sinus: normal facial exam Eyes: General: appearance normal, both eyes and all related structures Pupils: Equal, round and reactive pupils present EOM: EOMs intact bilateral
[2022-02-15] MEDS: POTASSIUM CHLORIDE 20 MEQ TABLET 40 MEQ PO (12:33)
[2022-02-15] MEDS: levETIRAcetam 500 MG TABLET PO (13:28)
== END 2022-02-15 13:45 | disposition home or self-care (01) ==
LOC: ANHED 21:27 → ANH3MEDSUR 02-14 01:10
PROVIDERS: Admitting Provider Internal Medicine; Emergency Provider Emergency Medicine; Visit Provider Nurse Practitioner
DX: R56.9 Unspecified convulsions (principal); F10.231 Alcohol dependence with withdrawal delirium; F17.210 Nicotine dependence, cigarettes, uncomplicated; D50.9 Iron deficiency anemia, unspecified; F12.90 Cannabis use, unspecified, uncomplicated; Z20.822 Contact with and (suspected) exposure to COVID-19
CPT/HCPCS: 36415; 36430; 70450; 80053; 82607; 82728; 82746; 83540; 83550; 83615; 83735; 84443; 84466; 84484; 85025; 85055; 86850; 86900; 86901; 86920; 93005; 95816; 96360; 96361; 96365; 96366; 96374; 96375; 99285; A9270; C9113; C9803; G0378; G0379; J3411; J3475; J7030; J7042; J7050; J7120; P9016; U0003; U0005

== ENCOUNTER 2024-03-19 11:39 | Emergency (ER) | payer BC, SELFPAY ==
[2024-03-19 11:42] VITALS: BP 133/88; PULSE 109; RESP 19; TEMP 36.6; O2SAT 98
[2024-03-19 11:57] VITALS: PULSE 113
--- NOTE | 2024-03-19 11:57 | ECG_ITS ---
Test Date: 2024-03-19 12:13:40 Measurements Intervals [place] Rate: 102 P: 0 FL: 0 QRS: 56 QRSD: 86 T: 63 QT: 335 QTc: 438 Interpretive Statements SINUS TACHYCARDIA EARLY REPOLARIZATION BORDERLINE ECG No previous ECG available for comparison Electronically Signed On 03-19-2024 15:50:21 CDT by Faizan Pennington M.D.
[2024-03-19] MEDS: levETIRAcetam 1000MG/NACL100ML 1,000 MG/100 ML BAG 400 MG IVPB (12:26)
[2024-03-19 12:44] VITALS: BP 133/88; PULSE 102; RESP 17; O2SAT 98
[2024-03-19 12:52] LABS: Basophils Percent Auto 0.4 % (0.2-1.2); Hematocrit 37.1 % (42.0-52.0); Hemoglobin 12.1 g/dL (14.0-18.0); Immature Granulocyte Absolute 0.01 K/mm3 (0.00-0.031); Immature Granulocyte Percent A 0.4 % (0-0.5); Lymphocytes Absolute Auto 0.28 K/mm3 (0.9-3.2); Lymphocytes Percent Auto 10.3 % (18.3-44.2); Mean Corpuscular HGB Conc 32.6 g/dl (32-36); Mean Corpuscular Hemoglobin 28.5 pg (26-34); Mean Corpuscular Volume 87.3 fl (80-100); Mean Platelet Volume 9.7 fl (7.4-10.4); Monocytes Absolute Auto 0.2 K/mm3 (0.1-0.6); Monocytes Percent Auto 7.4 % (2.6-8.5); Neutrophils Absolute Auto 2.2 K/mm3 (1.3-6.7); Neutrophils Percent Auto 81.5 % (45.5-73.1); Platelet Count Result 119 k/mm3 (150-375); Red Blood Count 4.25 M/mm3 (4.6-6.20); Red Cell Distribution Width 18.7 % (11.5-14.5); White Blood Count 2.7 K/mm3 (4.5-10.0)
--- NOTE | 2024-03-19 13:08 | ED.GENADULT ---
HPI - General Adult General Chief complaint: Seizure Stated complaint: seizure Time Seen by Provider: 03/19/24 12:21 History of Present Illness HPI narrative: Patient is a male who presents to the emergency department this afternoon secondary to a breakthrough seizure that occurred while patient was at work. This seizure was witnessed by coworkers as a tonic clonic seizure. Patient does have a history of seizure disorder and admits that he has not been taking his Keppra since he ran out a few weeks ago. Patient takes Keppra 500 mg BID. Patient is currently awake and alert and oriented to person, place, time and situation as above and all of my questions appropriately. He is denying any symptoms or concerns at this time. Related Data Allergies Allergy/AdvReac Type Severity Reaction Status Date / Time No Known Allergies Allergy Verified 02/13/22 18:36 Review of Systems Review of Systems: All systems are reviewed and are negative unless stated otherwise in the HPI. [facility] Past Medical History Medical History Elevated liver enzymes Microcytic anemia Seizure disorder Social History Social History Smoking packs per day: 0.5 Smoking cigarettes per day: 10.0 Years smoked: 15 Smoking pack-years: 7.50 Smoking status: Current every day smoker Tobacco type: cigarettes Second hand tobacco smoke exposure: No Alcohol intake: current Drinks per week: 7 Alcohol use details: daily drinker++ Substance use: current Substance use type: marijuana Gender identity (if verbalized by the patient): Male Spiritual care concerns: No Exam Narrative: General: Alert, awake, afebrile, in no acute distress. HEENT: PERRL, no rhinorrhea, no post nasal drip, oropharynx clear. Cardiovascular: Regular rate and rhythm, no murmurs, rubs or gallops, no peripheral edema. Respiratory: Clear to auscultation bilaterally, no tachypnea, no wheezing, no rhonchi, no rubs, no respiratory distress. Abdomen: Soft, nontender, nondistended, no rebound, no guarding, no peritoneal signs. Musculoskeletal: No joint swelling or deformity, normal muscle tone. Skin: No rashes or petechia, no signs of infection. Neurological: Alert and oriented to person, place, and time. Follows all commands. No focal deficits, speech is clear and fluent. Course Vital Signs Vital signs: Vital Signs Temperature 97.9 F 03/19/24 11:42 Pulse Rate 109 H 03/19/24 11:42 Respiratory Rate 19 03/19/24 11:42 Blood Pressure 133/88 03/19/24 11:42 Pulse Oximetry 98 03/19/24 11:42 Oxygen Delivery Room Air 03/19/24 11:42 Temperature 97.9 F 03/19/24 11:42 Pulse Rate 102 H 03/19/24 12:44 Respiratory Rate 17 03/19/24 12:44 Blood Pressure 133/88 03/19/24 12:44 Pulse Oximetry 98 03/19/24 12:44 Oxygen Delivery Room Air 03/19/24 12:23 Medical Decision Making MDM Narrative Medical decision making narrative: The patient was evaluated by myself in the emergency department. History is obtained from patient who is an independent historian and physical exam was performed. External medical records were reviewed at this time. IV was established and pertinent tests were ordered. Patient was administered 1 g of IV Keppra and 1 L IV fluid bolus with normal saline. EKG was obtained which revealed sinus tachycardia rate of 102 beats per minute. No ST changes, T wave inversions or evidence of acute ischemia. EKG was independently interpreted by me and is currently pending official cardiology read. Laboratory results obtained revealing anion gap of 16, bicarb of 15, likely secondary to lactic acidosis from seizure. AST 123 and ALT 72. Differential diagnosis considerations include breakthrough seizure, electrolyte derangements, medication noncompliance. Comorbidities impacting this visit include history of seizure d
[2024-03-19 13:14] LABS: Albumin Level 4.6 g/dL (3.5-5.1); Alkaline Phosphatase 72 U/L (38-126); Anion Gap 16 mmol/L (4-12); Aspartate Amino Transferase 123 U/L (17-59); Bilirubin,Total 0.8 mg/dL (0.2-1.3); Blood Urea Nitrogen 5 mg/dL (9-20); Calcium 9.2 mg/dL (8.4-10.2); Carbon Dioxide 15 mmol/L (22-30); Chloride 107 mmol/L (98-107); Estimated CRCL calculation 63 ml/min; Estimated Glomerular Filt Rate > 60; Glucose 107 mg/dL (65-110); Potassium 3.9 mmol/L (3.4-5.0); Sodium 138 mmol/L (137-145)
[2024-03-19 13:21] LABS: Alanine Aminotransferase 72 U/L (6-50)
[2024-03-19] MEDS: SODIUM CHLORIDE 0.9% IV 1,000 ML 999 ML IV CONT (13:24)
[2024-03-19 14:38] VITALS: BP 139/88; PULSE 94; RESP 16; O2SAT 98
== END 2024-03-19 14:39 | disposition home or self-care (01) ==
PROVIDERS: Emergency Medicine; Emergency Provider Emergency Medicine; PCP Physician Assistant
DX: G40.909 Epilepsy, unspecified, not intractable, without status epilepticus (principal); F17.210 Nicotine dependence, cigarettes, uncomplicated; Z91.199 Patient's noncompliance with other medical treatment and regimen due to unspecified reason
CPT/HCPCS: 36415; 80053; 85025; 93005; 96365; 99284; J1953; J7030